=== PATIENT | male | born 2000 | race Two or more races ===

== ENCOUNTER 2022-02-20 18:38 | Inpatient (IN) | payer OTHER ==
[~2022-02-20] VITALS: Ht 165.1 cm; Wt 67.5 kg
[2022-02-20 20:45] LABS: BASOPHILS % (AUTO) 0.6 % (0.0-2.0); EOSINOPHILS % (AUTO) 5.7 % (1.0-6.0); HEMATOCRIT 43.7 % (41-53); HEMOGLOBIN 15.1 g/dL (13.5-17.5); LYMPHOCYTES # (AUTO) 3.2 K/uL (1.0-4.8); LYMPHOCYTES % (AUTO) 34.5 % (22.0-44.0); MEAN CORPUSCULAR HEMOGLOBIN 31.9 pg (26.0-34.0); MEAN CORPUSCULAR HGB CONC 34.6 G/dL (31.0-37.0); MEAN CORPUSCULAR VOLUME 92 fL (80-100); MONOCYTES # (AUTO) 0.5 K/uL (0.1-1.0); MONOCYTES % (AUTO) 5.6 % (2.0-9.0); NEUTROPHILS # (AUTO) 4.9 K/uL (1.8-7.7); NEUTROPHILS % (AUTO) 53.6 % (40.0-70.0); PLATELET COUNT (AUTO) 248 K/uL (150-450); RED BLOOD CELL COUNT(AUTO) 4.74 MIL/uL (4.50-5.90); RED CELL DISTRIBUTION WIDTH 13.2 % (11.5-14.5)
[2022-02-20 20:55] LABS: ANION GAP 4 mmol/L (8-16); CALCIUM, TOTAL 9.7 mg/dL (8.8-10.5); CARBON DIOXIDE 31 mmol/L (22-29); CHLORIDE 102 mmol/L (98-107); CREATININE 1.01 mg/dL (0.60-1.30); GLUCOSE,RANDOM 93 mg/dL (70-110); POTASSIUM 4.1 mmol/L (3.5-5.1); SODIUM SERUM 137 mmol/L (136-145); UREA NITROGEN, BLOOD 11 mg/dL (7-18)
[2022-02-20 20:57] LABS: GLOMERULAR FILTR. RATE CALC > 60 mL/min (>60); PROTHROMBIN TIME 10.9 SEC (9.4-11.6)
[2022-02-20 21:00] LABS: ALANINE AMINOTRANSFERASE 25 U/L (12-78); ALBUMIN 4.5 g/dL (3.4-5.0); ALKALINE PHOSPHATASE 82 U/L (46-116); ASPARTATE AMINOTRANSFERASE 24 U/L (15-37); BILIRUBIN,TOTAL 0.5 mg/dL (0.1-1.0); TOTAL PROTEIN, SERUM 7.4 g/dL (6.4-8.2)
[2022-02-20] MEDS ORDERED: ACETAMINOPHEN 325 MG TABLET PO PRN (21:15)
[2022-02-20] MEDS ORDERED: MORPHINE SULFATE 2 MG/ML SYRINGE IVP PRN (21:15)
[2022-02-20] MEDS ORDERED: HYDROCODONE/ACETAMINOPHEN 5-325 MG TABLET PO PRN (21:15)
[2022-02-20] MEDS ORDERED: BISACODYL 10 MG RECTAL RECTAL SUPPOSITORY PR PRN (21:15)
[2022-02-20] MEDS ORDERED: MAGNESIUM HYDROXIDE SUSPENSION 30 ML UDCUP PO PRN (21:15)
[2022-02-20] MEDS ORDERED: ONDANSETRON HCL 4 MG/2 ML VIAL IVP PRN (21:15)
[2022-02-20 21:25] LABS: COVID AG,FIA SOURCE NASOPHARYNGEAL
[2022-02-20] MEDS: HEPARIN SODIUM,PORCINE 5,000 UNITS/ML VIAL SQ SCH (23:01)
[2022-02-20 23:26] VITALS: BP 121/74
[2022-02-21] MEDS ORDERED: INFLUENZA VIRUS VACCINE QVS 2022-23 (6MO+)/PF 60 MCG/0.5 ML SYRINGE IM. ONE (02:00)
[2022-02-21 03:40] LABS: APPEARANCE,URINE CLEAR (CLEAR); BILIRUBIN,URINE NEGATIVE (NEGATIVE); GLUCOSE, URINE (UA) NEGATIVE (NEGATIVE); KETONES,URINE NEGATIVE (NEGATIVE); LEUKOCYTE ESTERASE ,URINE NEGATIVE (NEGATIVE); NITRATE,URINE NEGATIVE (NEGATIVE); OCCULT BLOOD,URINE NEGATIVE (NEGATIVE); PROTEIN,URINE NEGATIVE (NEGATIVE); SPECIFIC GRAVITIY, URINE 1.018 (1.003-1.030); UROBILINOGEN,URINE <=1.0 mg/dL (<=1.0)
[2022-02-21 03:46] LABS: BACTERIA,URINE None Seen /HPF (None Seen); RBC,URINE None Seen /HPF (0-2); SQUAMOUS EPITHELIAL CELL,UR None Seen /LPF (None Seen); WBC,URINE None Seen /HPF (0-5)
[2022-02-21 05:13] VITALS: BP 111/53
[2022-02-21] MEDS: RINGERS SOLUTION,LACTATED 1,000 ML IV SCH ×2 (07:12→18:07)
[2022-02-21] MEDS: HEPARIN SODIUM,PORCINE 5,000 UNITS/ML VIAL SQ SCH ×2 (08:00→18:07)
[2022-02-21] MEDS: DOCUSATE SODIUM 100 MG CAPSULE PO SCH ×2 (08:06→21:00)
[2022-02-21] MEDS: PANTOPRAZOLE SODIUM 40 MG DR TABLET PO SCH (08:07)
[2022-02-21 08:29] VITALS: BP 106/51
[2022-02-21 15:26] VITALS: BP 110/55
[2022-02-21] MEDS ORDERED: CeFAZolin 2 GM/DEXTROSE 50 ML IV ONE (16:00)
[2022-02-21 19:48] VITALS: BP 114/60
[2022-02-22] MEDS: HEPARIN SODIUM,PORCINE 5,000 UNITS/ML VIAL SQ SCH ×4 (00:22→23:52)
[2022-02-22] MEDS: ZOLPIDEM TARTRATE 5 MG TABLET PO PRN ×2 (00:27→21:58)
[2022-02-22] MEDS: RINGERS SOLUTION,LACTATED 1,000 ML IV SCH ×3 (01:59→18:47)
[2022-02-22 04:17] VITALS: BP 106/60
[2022-02-22 07:22] VITALS: BP 108/62
[2022-02-22] MEDS: PANTOPRAZOLE SODIUM 40 MG DR TABLET PO SCH (09:11)
[2022-02-22] MEDS: DOCUSATE SODIUM 100 MG CAPSULE PO SCH ×2 (09:11→21:00)
[2022-02-22 15:18] VITALS: BP 117/62
[2022-02-22 19:45] VITALS: BP 121/58
[2022-02-23 04:48] VITALS: BP 110/59
[2022-02-23] MEDS: RINGERS SOLUTION,LACTATED 1,000 ML IV SCH ×2 (05:08→18:45)
[2022-02-23] MEDS ORDERED: LIDOCAINE/PF 1% 30 ML VIAL ONE (06:44)
[2022-02-23] MEDS ORDERED: BUPIVACAINE HCL/PF 0.25% 30 ML VIAL ONE (06:44)
[2022-02-23] MEDS ORDERED: BACITRACIN 28 GM OINTMENT TP ONE ×2 (07:36→09:15)
[2022-02-23] MEDS: HEPARIN SODIUM,PORCINE 5,000 UNITS/ML VIAL SQ SCH ×2 (08:00→16:35)
[2022-02-23] MEDS ORDERED: FentaNYL CITRATE PF 100 MCG/2 ML VIAL IVP PRN (08:15)
[2022-02-23] MEDS ORDERED: HYDROmorphone HCL 2 MG/ML SYRINGE IVP PRN ×2 (08:15→10:30)
[2022-02-23] MEDS ORDERED: MEPERIDINE-PF 25 MG/ML VIAL IVP PRN (08:15)
[2022-02-23] MEDS: PANTOPRAZOLE SODIUM 40 MG DR TABLET PO SCH (09:00)
[2022-02-23] MEDS: DOCUSATE SODIUM 100 MG CAPSULE PO SCH ×2 (09:00→20:17)
[2022-02-23] MEDS ORDERED: BUPIVACAINE LIPOSOME/PF 1.3%-13.3MG/ML SUSPENSION 20 ML VIAL INJ ONE (09:15)
[2022-02-23 10:57] VITALS: BP 139/80
[2022-02-23] MEDS ORDERED: SODIUM CHLORIDE 0.9% 500 ML IV ONE (12:08)
[2022-02-23] MEDS: CeFAZolin 1 GM/DEXTROSE 50 ML IV SCH ×2 (12:10→18:08)
[2022-02-23] MEDS: HYDROCODONE/ACETAMINOPHEN 5-325 MG TABLET PO PRN ×2 (12:10→20:19)
[2022-02-23 16:33] VITALS: BP 123/67
[2022-02-23 19:43] VITALS: BP 135/77
[2022-02-23] MEDS: OXYGEN THERAPY IH SCH (20:00)
[2022-02-24] MEDS: HYDROCODONE/ACETAMINOPHEN 5-325 MG TABLET PO PRN ×2 (01:58→09:21)
[2022-02-24] MEDS: CeFAZolin 1 GM/DEXTROSE 50 ML IV SCH ×2 (01:59→11:07)
[2022-02-24 04:38] VITALS: BP 131/75
[2022-02-24] MEDS: RINGERS SOLUTION,LACTATED 1,000 ML IV SCH ×2 (05:14→14:45)
[2022-02-24] MEDS ORDERED: FentaNYL CITRATE PF 100 MCG/2 ML VIAL IVP ONE (06:10)
[2022-02-24] MEDS ORDERED: 0.9% SODIUM CHLORIDE 10 ML VIAL IVP ONE (06:10)
[2022-02-24] MEDS ORDERED: LIDOCAINE/PF 2% 5 ML VIAL IM ONE (06:10)
[2022-02-24] MEDS ORDERED: ONDANSETRON HCL 4 MG/2 ML VIAL IVP ONE (06:10)
[2022-02-24] MEDS ORDERED: KETOROLAC TROMETHAMINE 60 MG/2 ML VIAL IM ONE (06:10)
[2022-02-24] MEDS ORDERED: PROPOFOL 1% 20 ML VIAL IVP ONE (06:10)
[2022-02-24] MEDS ORDERED: ROCURONIUM BROMIDE 10 MG/ML 5 ML VIAL IVP ONE (06:10)
[2022-02-24] MEDS ORDERED: MIDAZOLAM HCL 2 MG/2 ML VIAL IVP ONE (06:10)
[2022-02-24] MEDS ORDERED: DEXAMETHASONE SOD PHOS 4 MG/ML VIAL IVP ONE (06:10)
[2022-02-24] MEDS ORDERED: MORPHINE SULFATE/PF 0.5 MG/ML 10 ML AMP IVP ONE (06:10)
[2022-02-24] MEDS: OXYGEN THERAPY IH SCH (08:00)
[2022-02-24 08:02] VITALS: BP 127/64
[2022-02-24] MEDS: DOCUSATE SODIUM 100 MG CAPSULE PO SCH (09:00)
[2022-02-24] MEDS: HEPARIN SODIUM,PORCINE 5,000 UNITS/ML VIAL SQ SCH ×2 (09:21)
[2022-02-24] MEDS: PANTOPRAZOLE SODIUM 40 MG DR TABLET PO SCH (09:21)
== END 2022-02-24 16:07 | DRG 512 ==
LOC: EMS 18:38 → 6S 22:00 → EMS 22:02
PROVIDERS: ADMIT Internal Medicine; ATTEND Internal Medicine
PROC: 01B60ZZ Excision of Radial Nerve, Open Approach (ICD-10-PCS; 2022-02-23)
PROC: 0PSKXZZ Reposition Right Ulna, External Approach (ICD-10-PCS; 2022-02-23)
PROC: 0PSH04Z Reposition Right Radius with Internal Fixation Device, Open Approach (ICD-10-PCS; principal; 2022-02-23 07:30)
DX: S52.531A Colles' fracture of right radius, initial encounter for closed fracture (principal); S52.611A Displaced fracture of right ulna styloid process, initial encounter for closed fracture; S52.571A Other intraarticular fracture of lower end of right radius, initial encounter for closed fracture; Z20.822 Contact with and (suspected) exposure to COVID-19; Z79.899 Other long term (current) drug therapy; W18.39XA Other fall on same level, initial encounter; Y93.89 Activity, other specified; Y92.89 Other specified places as the place of occurrence of the external cause; Y99.8 Other external cause status
CPT/HCPCS: 73200; 80053; 81001; 85025; 85610; 85730; 87081; 97165; 97535; 99285; C9290; J0690; J1100; J1644; J1885; J2250; J2274; J2405; J2704; J3010; J3490; J7040; J7120